=== PATIENT | female | born 1990 | race American Indian/Alaskan Native ===

== ENCOUNTER 2020-06-22 12:58 | Emergency (ER) | payer MEDICAID, OTHER, SELFPAY ==
[2020-06-22] MEDS ORDERED: Sodium Chloride 0.9% 1,000 ML IV ONE ×2 (13:43→15:38)
--- NOTE | 2020-06-22 13:43 | EDM.PDOC ---
ED HPI GENERAL MEDICAL PROBLEM - General Chief Complaint: Abdominal Pain Stated Complaint: CYST ON OVARIES Time Seen by Provider: 06/22/20 13:20 Source of Information: Reports: Patient, Old Records, RN, RN Notes Reviewed History Limitations: Reports: No Limitations - History of Present Illness INITIAL COMMENTS - FREE TEXT/NARRATIVE: Patient presents to ED via personal vehicle with complaints of left lower quadrant and left upper quadrant pain. The patient states she experienced one bout of emesis three days ago, 06/19/20, and multiple bouts of emesis two days ago 06/20/20. She reports taking Ducolax two days ago and has subsequently experienced two bowel movements. She notes her LMP was "...early last month" and states she may be . She denies fever, shaking chills, dyspepsia, diarrhea, melena, hematochezia, or vaginal discharge. She does attest to dysuria with hematuria. She states she does not take medication daily for any chronic health conditions. She denies alcohol use but attests to smoking 1/2 pack a day of cigarettes. Additionally she states she smokes cannabis and methamphetamines on occasion. Left Lower Abdomen Pain Score (Numeric/FACES): 8 - Related Data Allergies Allergy/AdvReac Type Severity Reaction Status Date / Time Penicillins Allergy Hives Verified 06/22/20 13:12 Home Meds: Home Meds . 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 gonorrhea affecting in third trimester - Infectious Disease History Infectious Disease History: Reports: Hepatitis C Social & Family History - Family History Family Medical History: No Pertinent Family History - Tobacco Use Tobacco Use Status *Q: Current Every Day Tobacco User Years of Tobacco use: 10 Packs/Tins Daily: 0.5 - Caffeine Use Caffeine Use: Reports: None - Recreational Drug Use Recreational Drug Use: Yes Drug Use in Last 12 Months: Yes Recreational Drug Type: Reports: Methamphetamine ED ROS GENERAL - Review of Systems Review Of Systems: Comprehensive ROS is negative, except as noted in HPI. ED EXAM, GI/ABD - Physical Exam Exam: See Below Exam Limited By: No Limitations General Appearance: Alert, Mild Distress Throat/Mouth: Normal Inspection, Normal Voice, No Airway Compromise Head: Atraumatic, Normocephalic Respiratory/Chest: No Respiratory Distress, No Accessory Muscle Use, Chest Non- Tender, Crackles (Throughout lung boyd), Rhonchi (Throughout lung boyd) Cardiovascular: Normal Peripheral Pulses, Regular Rate, Rhythm, No Edema, No Gallop, No JVD, No Murmur, No Rub, Tachycardia GI/Abdominal Exam: Guarding, Tender (To LUQ and LLQ). No: Distended, Rebound, Abnormal Bowel Sounds (Hyperactive x4) Back Exam: Normal Inspection, Full Range of Motion, CVA Tenderness (L). No: CVA Tenderness (R) Extremities: Normal Inspection, Normal Range of Motion, Non-Tender, Normal Capillary Refill, No Pedal Edema Neurological: Alert, Oriented, CN II-XII Intact, Normal Cognition, Normal Gait, No Motor/Sensory Deficits Psychiatric: Anxious, Tearful Skin Exam: Warm, Dry, Intact, Normal Color, No Rash. No: Ecchymosis, Erythema, Jaundice, Mottled, Pallor, Petechiae Course - Vital Signs Last Recorded V/S: Last Vital Signs Temp 97 F 06/22/20 15:25 Pulse 103 H 06/22/20 15:25 Resp 14 06/22/20 15:25 BP 113/63 06/22/20 15:25 Pulse Ox 98 06/22/20 15:25 - Orders/Labs/Meds Orders: Active Orders 24 hr Category Date Time Status OB Ltd 1 or More Fetus [US] Urgent Exams 06/22/20 14:29 Taken OB Transvaginal [US] Routine Exams 06/22/20 Taken CULTURE URINE [RM] Stat Lab 06/22/20 13:43 Received TYPE AND SCREEN [BBK] Stat Lab 06/22/20 13:50 Received Sodium Chloride 0.9% [Normal Saline] 1,000 ml Med 06/22/20 15:38 Active IV .BOLUS Blood Transfusion Reflex Orders [OM.PC] Routine Oth 06/22/20 15:33 Ordered Medication Orders Sodium Chloride (Normal Saline) 1,000 mls @ 250 mls/hr IV .BOLUS ONE Stop: 06/22/20 19:37 Labs: Laboratory Tests 06/22/20 06/22/20 06/22/20 Range/Units 13:43 13:43 13:47 WBC (5.0-10.0) 10^3/uL RBC (4.2-5.4) 10^6/uL Hgb (12.0-16.0) g/dL Hct (37.0-47.0) % MCV (80-100) fL MCH (27.0-34.0) pg MCHC (33.0-35.0) g/dL Plt Count (150-450) 10^3/uL Neut % (Auto) (42.2-75.2) % Lymph % (Auto) (20.5-50.1) % [place] % (Auto) (2-8) % Eos % (Auto) (1.0-3.0) % Baso % (Auto) (0.0-1.0) % Sodium (136-145) mmol/L Potassium (3.5-5.1) mmol/L Chloride (98-107) mmol/L Carbon Dioxide (21-32) mmol/L Anion Gap (7-13) mEq/L BUN (7-18) mg/dL Creatinine (0.55-1.02) mg/dL Est Cr Clr Drug Dosing mL/min Estimated GFR (MDRD) BUN/Creatinine Ratio (No establ ref range) Glucose (74-99) mg/dL Lactic Acid (0.4-2.0) mmol/L Calcium (8.5-10.1) mg/dL Magnesium (1.8-2.4) mg/dL Total Bilirubin (0.2-1.0) mg/dL AST (15-37) U/L ALT (14-59) U/L Alkaline Phosphatase (46-116) U/L C-Reactive Protein (0.0-0.9) mg/dL Total Protein (6.4-8.2) g/dL Albumin (3.4-5.0) g/dL Globulin Albumin/Globulin Ratio Amylase (25-115) U/L Lipase (73-393) U/L HCG, Qual HCG, Quant (0-6) mIU/mL Urine Color Lesley (YELLOW) Urine Appearance Cloudy (CLEAR) Urine pH 5.5 (5.0-9.0) Ur Specific [place] >= 1.030 (1.005-1.030) Urine Protein Trace H (NEGATIVE) Urine Glucose (UA) Negative (NEGATIVE) Urine Ketones Trace H (NEGATIVE) Urine Occult Blood Small H (NEGATIVE) Urine Nitrite Positive H (NEGATIVE) Urine Bilirubin Negative (NEGATIVE) Urine Urobilinogen 0.2 (0.2-1.0) mg/dL Ur Leukocyte Esterase Trace H (NEGATIVE) Urine RBC 5-10 H /HPF Urine WBC 20-30 H (0-5/HPF) /HPF Ur Epithelial Cells Few (NOT SEEN) /HPF Urine Bacteria Many H (0-FEW/HPF) /HPF Urine Mucus Rare (NOT SEEN) /LPF Urine Opiates Screen Negative (NEGATIVE) Ur Oxycodone Screen Negative (NEGATIVE) Urine Methadone Screen Negative (NEGATIVE) Ur Barbiturates Screen Negative (NEGATIVE) U Tricyclic Antidepress Negative (NEGATIVE) Ur Phencyclidine Scrn Negative (NEGATIVE) Ur Amphetamine Screen Positive H (NEGATIVE) U Methamphetamines Scrn Positive H (NEGATIVE) Urine MDMA Screen Negative (NEGATIVE) U Benzodiazepines Scrn Negative (NEGATIVE) Urine Cocaine Screen Negative (NEGATIVE) U Marijuana (THC) Screen Positive H (NEGATIVE) Ethyl Alcohol (0) mg/dL Influenza Type A RNA Negative (NEGATIVE) Influenza Type B RNA Negative (NEGATIVE) SARS-CoV-2 RNA (ABDULAZIZ) Negative (NEGATIVE) 06/22/20 06/22/20 06/22/20 Range/Units 13:50 13:50 13:50 WBC 15.4 H (5.0-10.0) 10^3/uL RBC 3.98 L (4.2-5.4) 10^6/uL Hgb 11.5 L (12.0-16.0) g/dL Hct 33.2 L (37.0-47.0) % MCV 83.4 (80-100) fL MCH 28.9 (27.0-34.0) pg MCHC 34.6 (33.0-35.0) g/dL Plt Count 325 D (150-450) 10^3/uL Neut % (Auto) 81.2 H (42.2-75.2) % Lymph % (Auto) 12.4 L (20.5-50.1) % [place] % (Auto) 6.2 (2-8) % Eos % (Auto) 0.1 L (1.0-3.0) % Baso % (Auto) 0.1 (0.0-1.0) % Sodium 131 L (136-145) mmol/L Potassium 3.6 (3.5-5.1) mmol/L Chloride 94 L (98-107) mmol/L Carbon Dioxide 25 (21-32) mmol/L Anion Gap 15.6 H (7-13) mEq/L BUN 16 (7-18) mg/dL Creatinine 0.90 (0.55-1.02) mg/dL Est Cr Clr Drug Dosing 81.07 mL/min Estimated GFR (MDRD) > 60 BUN/Creatinine Ratio 17.8 (No establ ref range) Glucose 130 H (74-99) mg/dL Lactic Acid 1.6 (0.4-2.0) mmol/L Calcium 8.7 (8.5-10.1) mg/dL Magnesium 2.2 (1.8-2.4) mg/dL Total Bilirubin 0.8 (0.2-1.0) mg/dL AST 110 H (15-37) U/L ALT 285 H (14-59) U/L Alkaline Phosphatase 134 H (46-116) U/L C-Reactive Protein 1.8 H (0.0-0.9) mg/dL Total Protein 8.3 H (6.4-8.2) g/dL Albumin 3.9 (3.4-5.0) g/dL Globulin 4.4 Albumin/Globulin Ratio 0.9 Amylase (25-115) U/L Lipase (73-393) U/L HCG, Qual Positive HCG, Quant (0-6) mIU/mL Urine Color (YELLOW) Urine Appearance (CLEAR) Urine pH (5.0-9.0) Ur Specific [place] (1.005-1.030) Urine Protein (NEGATIVE) Urine Glucose (UA) (NEGATIVE) Urine Ketones (NEGATIVE) Urine Occult Blood (NEGATIVE) Urine Nitrite (NEGATIVE) Urine Bilirubin (NEGATIVE) Urine Urobilinogen (0.2-1.0) mg/dL Ur Leukocyte Esterase (NEGATIVE) Urine RBC /HPF Urine WBC (0-5/HPF) /HPF Ur Epithelial Cells (NOT SEEN) /HPF Urine Bacteria (0-FEW/HPF) /HPF Urine Mucus (NOT SEEN) /LPF Urine Opiates Screen (NEGATIVE) Ur Oxycodone Screen (NEGATIVE) Urine Methadone Screen (NEGATIVE) Ur Barbiturates Screen (NEGATIVE) U Tricyclic Antidepress (NEGATIVE) Ur Phencyclidine Scrn (NEGATIVE) Ur Amphetamine Screen (NEGATIVE) U Methamphetamines Scrn (NEGATIVE) Urine MDMA Screen (NEGATIVE) U Benzodiazepines Scrn (NEGATIVE) Urine Cocaine Screen (NEGATIVE) U Marijuana (THC) Screen (NEGATIVE) Ethyl Alcohol < 3 (0) mg/dL Influenza Type A RNA (NEGATIVE) Influenza Type B RNA (NEGATIVE) SARS-CoV-2 RNA (ABDULAZIZ) (NEGATIVE) 06/22/20 06/22/20 Range/Units 13:50 13:50 WBC (5.0-10.0) 10^3/uL RBC (4.2-5.4) 10^6/uL Hgb (12.0-16.0) g/dL Hct (37.0-47.0) % MCV (80-100) fL MCH (27.0-34.0) pg MCHC (33.0-35.0) g/dL Plt Count (150-450) 10^3/uL Neut % (Auto) (42.2-75.2) % Lymph % (Auto) (20.5-50.1) % [place] % (Auto) (2-8) % Eos % (Auto) (1.0-3.0) % Baso % (Auto) (0.0-1.0) % Sodium (136-145) mmol/L Potassium (3.5-5.1) mmol/L Chloride (98-107) mmol/L Carbon Dioxide (21-32) mmol/L Anion Gap (7-13) mEq/L BUN (7-18) mg/dL Creatinine (0.55-1.02) mg/dL Est Cr Clr Drug Dosing mL/min Estimated GFR (MDRD) BUN/Creatinine Ratio (No establ ref range) Glucose (74-99) mg/dL Lactic Acid (0.4-2.0) mmol/L Calcium (8.5-10.1) mg/dL Magnesium (1.8-2.4) mg/dL Total Bilirubin (0.2-1.0) mg/dL AST (15-37) U/L ALT (14-59) U/L Alkaline Phosphatase (46-116) U/L C-Reactive Protein (0.0-0.9) mg/dL Total Protein (6.4-8.2) g/dL Albumin (3.4-5.0) g/dL Globulin Albumin/Globulin Ratio Amylase 96 (25-115) U/L Lipase 120 (73-393) U/L HCG, Qual HCG, Quant 1909 H (0-6) mIU/mL Urine Color (YELLOW) Urine Appearance (CLEAR) Urine pH (5.0-9.0) Ur Specific [place] (1.005-1.030) Urine Protein (NEGATIVE) Urine Glucose (UA) (NEGATIVE) Urine Ketones (NEGATIVE) Urine Occult Blood (NEGATIVE) Urine Nitrite (NEGATIVE) Urine Bilirubin (NEGATIVE) Urine Urobilinogen (0.2-1.0) mg/dL Ur Leukocyte Esterase (NEGATIVE) Urine RBC /HPF Urine WBC (0-5/HPF) /HPF Ur Epithelial Cells (NOT SEEN) /HPF Urine Bacteria (0-FEW/HPF) /HPF Urine Mucus (NOT SEEN) /LPF Urine Opiates Screen (NEGATIVE) Ur Oxycodone Screen (NEGATIVE) Urine Methadone Screen (NEGATIVE) Ur Barbiturates Screen (NEGATIVE) U Tricyclic Antidepress (NEGATIVE) Ur Phencyclidine Scrn (NEGATIVE) Ur Amphetamine Screen (NEGATIVE) U Methamphetamines Scrn (NEGATIVE) Urine MDMA Screen (NEGATIVE) U Benzodiazepines Scrn (NEGATIVE) Urine Cocaine Screen (NEGATIVE) U Marijuana (THC) Screen (NEGATIVE) Ethyl Alcohol (0) mg/dL Influenza Type A RNA (NEGATIVE) Influenza Type B RNA (NEGATIVE) SARS-CoV-2 RNA (ABDULAZIZ) (NEGATIVE) Meds: Medications Generic Name Dose Route Start Last Admin Trade Name Freq PRN Reason Stop Dose Admin Sodium Chloride 1,000 mls @ 250 mls/hr 06/22/20 15:38 Normal Saline IV 06/22/20 19:37 .BOLUS ONE Discontinued Medications Generic Name Dose Route Start Last Admin Trade Name Freq PRN Reason Stop Dose Admin Acetaminophen 650 mg 06/22/20 14:32 06/22/20 14:40 Tylenol PO 06/22/20 14:33 650 mg NOW ONE Administration Hydromorphone HCl 1 mg 06/22/20 15:29 06/22/20 15:36 Dilaudid IVPUSH 06/22/20 15:30 1 mg ONETIME ONE Administration Sodium Chloride 1,000 mls @ 999 mls/hr 06/22/20 13:43 06/22/20 13:45 Normal Saline IV 06/22/20 14:43 999 mls/hr .BOLUS ONE Administration Ceftriaxone Sodium 1 gm/ 50 mls @ 100 mls/hr 06/22/20 14:40 06/22/20 15:37 Sodium Chloride IV 06/22/20 15:09 100 mls/hr ONETIME ONE Administration Ketorolac Tromethamine 30 mg 06/22/20 14:21 06/22/20 14:36 Toradol IVPUSH 06/22/20 14:22 Not Given ONETIME ONE Ondansetron HCl 4 mg 06/22/20 14:32 06/22/20 14:40 Zofran IVPUSH 06/22/20 14:33 4 mg ONETIME ONE Administration - Re-Assessments/Exams Free Text/Narrative Re-Assessment/Exam: 06/22/20 UA positive for UTI. WBC elevated at 15.5 with left shift, Hbg 11.5, Hct 33.2. test + with Quant of 1909. AST 110, ALT 285, Alk Phos 134. Tox screen positive for Methamphetamines/Amphetamines and THC. Given positive test, will obtain US to rule out ectopic vs kidney stone vs pyelonephritis. Patient updated on lab results and plan of care regarding imaging. Will treat pain with oral Tylenol at this time. US positive for ectopic with rupture as free fluid is noted in the abdominal cavity. Case discussed with Dr. Harrison, Emergency provider at [facility] in [place]. Dr. Harrison agreed to accept the patient for transfer. Discussed plan of care with patient who verbalized understanding and agreement with the plan of care. Departure - Departure Time of Disposition: 15:46 Disposition: DC/Tfer to Acute Hospital 02 Clinical Impression: Ruptured ectopic , Elevated LFTs, Acute cystitis during in first trimester - Discharge Information Forms: ED Department Discharge, Interfacility Transfer [facility] Sepsis Event Note (ED) - Evaluation Sepsis Screening Result: No Definite Risk - Focused Exam Vital Signs: Vital Signs Temp Pulse Resp BP Pulse Ox 06/22/20 15:25 97 F 103 H 14 113/63 98 06/22/20 13:12 97.2 F 118 H 18 118/75 95 - My Orders Last 24 Hours: My Active Orders 06/22/20 OB Transvaginal [US] Routine 06/22/20 13:43 CULTURE URINE [RM] Stat 06/22/20 13:50 TYPE AND SCREEN [BBK] Stat 06/22/20 14:29 OB Ltd 1 or More Fetus [US] Urgent 06/22/20 15:33 Blood Transfusion Reflex Orders [OM.PC] Routine 06/22/20 15:38 Sodium Chloride 0.9% [Normal Saline] 1,000 ml IV .BOLUS - Assessment/Plan Last 24 Hours: My Active Orders 06/22/20 OB Transvaginal [US] Routine 06/22/20 13:43 CULTURE URINE [RM] Stat 06/22/20 13:50 TYPE AND SCREEN [BBK] Stat 06/22/20 14:29 OB Ltd 1 or More Fetus [US] Urgent 06/22/20 15:33 Blood Transfusion Reflex Orders [OM.PC] Routine 06/22/20 15:38 Sodium Chloride 0.9% [Normal Saline] 1,000 ml IV .BOLUS
[2020-06-22 14:15] LABS: ANION GAP 15.6 mEq/L (7-13); CHLORIDE,CL 94 mmol/L (98-107); SODIUM,NA 131 mmol/L (136-145)
[2020-06-22] MEDS ORDERED: Ketorolac 30 MG/ML SDV IVPUSH ONE (14:21)
[2020-06-22] MEDS ORDERED: Acetaminophen 325 MG Tab PO ONE (14:32)
[2020-06-22] MEDS ORDERED: Ondansetron 4 MG/2 ML SDV IVPUSH ONE (14:32)
[2020-06-22 14:35] LABS: CORONAVIRUS COVID-19 NAA NEGATIVE (NEGATIVE)
[2020-06-22] MEDS ORDERED: cefTRIAXone 1 GM in Sodium Chloride 0.9% 50 ML IV ONE (14:40)
[2020-06-22] MEDS ORDERED: HYDROmorphone 1 MG/ML Syringe IVPUSH ONE (15:29)
--- NOTE | 2020-06-22 15:46 | US ---
EXAMINATION: OB Ltd 1 or More Fetus SEX: Female AGE: 30 years CLINICAL HISTORY: 30-year-old gravid female with Pain in left lower lower quadrant. No vaginal bleeding. Serum hCG 1909; WBC 15,000; hemoglobin 11,900. INTERPRETATION: Abnormal. 1. Enlarged uterus is "empty" i.e. no sign of intrauterine gestational sac or parts. 2. Free intraperitoneal fluid. 3. Large complex left adnexal mass with central cystic structure that may represent ectopic gestational sac. CONCLUSION: Ectopic . Note: Primary care provider (Hong Miranda) [facility] emergency department notified immediately.
--- NOTE | 2020-06-23 09:31 | US ---
EXAMINATION: OB Ltd 1 or More Fetus SEX: Female AGE: 30 years CLINICAL HISTORY: 30-year-old gravid female with Pain in left lower lower quadrant. No vaginal bleeding. Serum hCG 1909; WBC 15,000; hemoglobin 11,900. INTERPRETATION: Abnormal. 1. Enlarged uterus is "empty" i.e. no sign of intrauterine gestational sac or parts. 2. Free intraperitoneal fluid. 3. Large complex left adnexal mass with central cystic structure that may represent ectopic gestational sac. CONCLUSION: Ectopic . Note: Primary care provider (Hong Miranda) [facility] emergency department notified immediately.
== END 2020-06-22 16:06 ==
LOC: DL.ED 12:58
DX: O23.11 Infections of bladder in pregnancy, first trimester (principal); O00.91 Unspecified ectopic pregnancy with intrauterine pregnancy; R79.89 Other specified abnormal findings of blood chemistry; Z20.822 Contact with and (suspected) exposure to COVID-19; Z88.0 Allergy status to penicillin; Z72.0 Tobacco use
CPT/HCPCS: 0240U; 36415; 76815; 76817; 80053; 80305; 80307; 81001; 82150; 83605; 83690; 83735; 84702; 84703; 85025; 86140; 86850; 86900; 86901; 87086; 87088; 87186; 96365; 96375; 99285; A9270; J0696; J1170; J2405; J7030; J7050

== ENCOUNTER 2021-06-09 15:40 | Emergency (ER) | payer MEDICAID ==
--- NOTE | 2021-06-09 16:05 | EDM.PDOC ---
ED HPI GENERAL MEDICAL PROBLEM - General Chief Complaint: ENT Problem Stated Complaint: SWOLLEN TOSILS FOR TWO WEEKS Time Seen by Provider: 06/09/21 16:04 Source of Information: Reports: Patient, RN, RN Notes Reviewed History Limitations: Reports: No Limitations - History of Present Illness INITIAL COMMENTS - FREE TEXT/NARRATIVE: Pt presents to ER with c/o sore throat that began 2 weeks ago. The symptoms began to improve after at few days, then returned. Admits to mild sinus congestion, and mild cough. Pt thought the air in her house was too dry and might be the cause, but has not improved since using a humidifier. Denies fever, chest pain, or shortness of breath. Duration: Week(s): (2) Location: Reports: Other (throat) Quality: Reports: Ache, Burning Severity: Moderate Improves with: Reports: None Worsens with: Reports: Eating (Swallowing) Associated Symptoms: Reports: No Other Symptoms Throat Pain Score (Numeric/FACES): 3 - Related Data Allergies Allergy/AdvReac Type Severity Reaction Status Date / Time Penicillins Allergy Hives Verified 06/09/21 16:14 Home Meds: Home Meds . 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 gonorrhea affecting in third trimester - Infectious Disease History Infectious Disease History: Reports: Hepatitis C Social & Family History - Family History Family Medical History: No Pertinent Family History - Tobacco Use Tobacco Use Status *Q: Current Every Day Tobacco User Tobacco Use Within Last Twelve Months: Cigarettes - Caffeine Use Caffeine Use: Reports: None - Living Situation & Occupation Living situation: Reports: , with Family Occupation: Employed ED ROS ENT - Review of Systems Review Of Systems: Comprehensive ROS is negative, except as noted in HPI. ED EXAM, ENT - Physical Exam Exam: See Below Exam Limited By: No Limitations General Appearance: Alert, WD/WN, No Apparent Distress Eye Exam: Bilateral Eye: Normal Inspection Ears: Normal External Exam, Normal Canal, Hearing Grossly Normal, Normal TMs Nose: No Blood, Injected Turbinates. No: Nasal Discharge Mouth/Throat: Normal Lips, Hoarse Voice, Pharyngeal Erythema, Throat Pain, Tonsillar Erythema. No: Gum Swelling, Lip Swelling, Oral Ulcers, Throat Swe lling, Tongue Swelling, Tonsillar Exudates, Tonsillar Swelling, Uvular Deviation, Uvular Edema Head: Atraumatic, Normocephalic Neck: Full Range of Motion, Other ([place] cervical lymphadenopathy) Respiratory/Chest: Lungs Clear, Chest Non-Tender Cardiovascular: Regular Rate, Rhythm, Tachycardia Back: Normal Inspection Extremities: Normal Inspection Neurological: Alert, Oriented, No Motor/Sensory Deficits Psychiatric: Normal Mood Skin: Warm, Dry, Intact, Normal Color, No Rash Course - Vital Signs Last Recorded V/S: Last Vital Signs Temp 97.8 F 06/09/21 15:52 Pulse 114 H 06/09/21 15:52 Resp 14 06/09/21 15:52 BP 129/89 06/09/21 15:52 Pulse Ox 100 06/09/21 15:52 - Orders/Labs/Meds Orders: Active Orders 24 hr Category Date Time Status STREP SCRN A RAPID W CULT CONF [RM] Stat Lab 06/09/21 16:00 Results Labs: Laboratory Tests 06/09/21 Range/Units 16:00 Influenza Type A RNA Negative (NEGATIVE) RSV RNA (INAAT) Negative (NEGATIVE) Influenza Type B RNA Negative (NEGATIVE) SARS-CoV-2 RNA (ABDULAZIZ) Negative (NEGATIVE) Rapid Strep: negative Departure - Departure Time of Disposition: 17:12 Disposition: Home, Self-Care 01 Condition: Good Clinical Impression: Tonsillitis - Discharge Information *PRESCRIPTION DRUG MONITORING PROGRAM REVIEWED*: Not Applicable *COPY OF PRESCRIPTION DRUG MONITORING REPORT IN PATIENT LADAN: Not Applicable Instructions: Tonsillitis, [id number] Forms: ED Department Discharge Additional Instructions: Rx: Zithromax 500mg Frequent saltwater gargles until sore throat improves. Use Cepacol lozenges or Chloraseptic throat spray as needed for sore throat. Try to quit smoking, avoid smoke exposure, and continue use of humidifier. Sepsis Event Note (ED) - Evaluation Sepsis Screening Result: No Definite Risk - Focused Exam Vital Signs: Vital Signs Temp Pulse Resp BP Pulse Ox 06/09/21 15:52 97.8 F 114 H 14 129/89 100 - My Orders Last 24 Hours: My Active Orders 06/09/21 16:00 STREP SCRN A RAPID W CULT CONF [RM] Stat - Assessment/Plan Last 24 Hours: My Active Orders 06/09/21 16:00 STREP SCRN A RAPID W CULT CONF [RM] Stat
[2021-06-09 16:49] LABS: CORONAVIRUS COVID-19 NAA NEGATIVE (NEGATIVE); RESPIRATORY SYNCYTIAL VIR NAA NEGATIVE (NEGATIVE)
== END 2021-06-09 17:25 | disposition home or self-care (01) ==
LOC: DL.ED 15:40
DX: J03.90 Acute tonsillitis, unspecified (principal); Z88.0 Allergy status to penicillin; Z72.0 Tobacco use; Z20.822 Contact with and (suspected) exposure to COVID-19
CPT/HCPCS: 0241U; 87081; 87430; 99283

== ENCOUNTER 2021-12-15 06:47 | Inpatient (IN) | payer MEDICAID ==
[2021-12-15] MEDS: ceFAZolin 2 GM in Premix Bag 1 BAG IV SCH (07:35)
[2021-12-15] MEDS ORDERED: Lactated Ringers 1,000 ML IV ONE (07:52)
[2021-12-15] MEDS ORDERED: Methylergonovine 0.2 MG/1 ML Amp IM PRN (07:52)
[2021-12-15] MEDS ORDERED: Lidocaine 1% 30 ML SDV INJECT PRN (07:52)
[2021-12-15] MEDS ORDERED: Misoprostol 400 MCG (4 X 100 MCG TAB) RECTAL PRN (07:52)
[2021-12-15] MEDS ORDERED: Ondansetron 4 MG/2 ML SDV IVPUSH PRN (07:52)
[2021-12-15] MEDS ORDERED: Sodium Chloride 0.9% 10 ML Syringe FLUSH PRN ×2 (07:52→11:50)
[2021-12-15] MEDS ORDERED: Tranexamic Acid 1,000 MG in Sodium Chloride 0.9% 100 ML IV PRN (07:52)
[2021-12-15] MEDS ORDERED: Carboprost Tromethamine 250 MCG/1 ML Amp IM PRN (07:52)
[2021-12-15] MEDS ORDERED: Oxytocin/Normal Saline 30 UNIT/500 ML BAG IV SCH ×2 (08:00→10:00)
[2021-12-15] MEDS ORDERED: Lactated Ringers 1,000 ML IV SCH (08:00)
[2021-12-15] MEDS ORDERED: fentaNYL 100 MCG/2 ML SDV ONE (08:35)
[2021-12-15 08:47] LABS: AMPHETAMINES,URINE POSITIVE (NEGATIVE); BARBITURATES,URINE NEGATIVE (NEGATIVE); BENZODIAZEPINE,URINE NEGATIVE (NEGATIVE); MDMA (ECSTASY), URINE NEGATIVE (NEGATIVE); METHADONE,URINE NEGATIVE (NEGATIVE); METHAMPHETAMINES,URINE POSITIVE (NEGATIVE); OPIATES,URINE NEGATIVE (NEGATIVE); OXYCODONE,URINE NEGATIVE (NEGATIVE); PHENCYCLIDINE,URINE NEGATIVE (NEGATIVE); TCA,URINE NEGATIVE (NEGATIVE)
[2021-12-15] MEDS ORDERED: fentaNYL 100 MCG/2 ML SDV IV ONE (09:00)
[2021-12-15] MEDS ORDERED: Oxytocin 10 Units/1 ML SDV IM PRN (11:50)
[2021-12-15] MEDS ORDERED: Benzocaine/Menthol 20%-0.5% Spray 78 GM Cannister TOP PRN (11:50)
[2021-12-15] MEDS ORDERED: Zolpidem 5 MG Tab PO PRN (11:50)
[2021-12-15] MEDS ORDERED: Simethicone 80 MG Tab.Chew PO PRN (11:50)
[2021-12-15] MEDS: Acetaminophen 325 MG Tab PO PRN (17:31)
[2021-12-15] MEDS: Ibuprofen 800 MG Tab PO PRN (17:32)
[2021-12-15] MEDS: Docusate Sodium 100 MG Cap PO PRN (19:46)
[2021-12-16] MEDS: Ibuprofen 800 MG Tab PO PRN ×3 (01:49→17:45)
[2021-12-16] MEDS: Docusate Sodium 100 MG Cap PO PRN (08:46)
[2021-12-16] MEDS: Prenatal Multivitamin with Calcium/Folic Acid/Iron Tab PO SCH (08:46)
[2021-12-16] MEDS: Acetaminophen 325 MG Tab PO PRN (15:30)
[2021-12-16] MEDS: ceFAZolin 2 GM in Premix Bag 1 BAG IV SCH (19:34)
[2021-12-17] MEDS: Prenatal Multivitamin with Calcium/Folic Acid/Iron Tab PO SCH (10:41)
[2021-12-17] MEDS: Ibuprofen 800 MG Tab PO PRN (10:41)
[2021-12-17] MEDS: Docusate Sodium 100 MG Cap PO PRN (10:41)
== END 2021-12-17 13:05 | disposition home or self-care (01) | DRG 806 ==
LOC: DL.OBCHECK 06:47 → DL.OB 07:30 → OBSVTOIN 11:34 → DL.OB 11:34
PROVIDERS: ADMIT Family Medicine; ATTEND Family Medicine
PROC: 10E0XZZ Delivery of Products of Conception, External Approach (ICD-10-PCS; principal; 2021-12-15)
PROC: 00HU33Z Insertion of Infusion Device into Spinal Canal, Percutaneous Approach (ICD-10-PCS; 2021-12-15)
PROC: 3E0R3BZ Introduction of Anesthetic Agent into Spinal Canal, Percutaneous Approach (ICD-10-PCS; 2021-12-15)
PROC: 10907ZC Drainage of Amniotic Fluid, Therapeutic from Products of Conception, Via Natural or Artificial Opening (ICD-10-PCS; 2021-12-15)
DX: O99.02 Anemia complicating childbirth (principal); D62 Acute posthemorrhagic anemia; Z37.0 Single live birth; O99.324 Drug use complicating childbirth; Z3A.39 39 weeks gestation of pregnancy; O62.2 Other uterine inertia; F15.90 Other stimulant use, unspecified, uncomplicated; Z20.822 Contact with and (suspected) exposure to COVID-19
CPT/HCPCS: 01967; 36415; 59409; 80305-QW; 85025; 85027; A9270-GY; J0690; J2405; J2590; J3010; J7120; U0002

== ENCOUNTER 2022-07-30 00:55 | Emergency (ER) | payer MEDICAID ==
[2022-07-30] MEDS ORDERED: Benzonatate 100 MG Cap PO ONE ×2 (00:56→01:14)
[2022-07-30] MEDS ORDERED: Azithromycin 250 MG Tab PO ONE (00:56)
[2022-07-30] MEDS ORDERED: Ibuprofen 600 MG Tab PO ONE (01:14)
[2022-07-30] MEDS ORDERED: Azithromycin 250 MG Tab ONE (02:15)
[2022-07-30] MEDS ORDERED: Benzonatate 100 MG Cap ONE (02:16)
== END 2022-07-30 02:30 | disposition home or self-care (01) ==
LOC: DL.ED 00:55
DX: J40 Bronchitis, not specified as acute or chronic (principal); Z88.0 Allergy status to penicillin; Z79.899 Other long term (current) drug therapy; Z20.822 Contact with and (suspected) exposure to COVID-19
CPT/HCPCS: 87635; 99283; 99284; A9270; U0002